=== PATIENT | male | born 1980 | race African-American/Black ===

== ENCOUNTER 2016-07-22 06:59 | Emergency (ER) | payer SELFPAY ==
[2016-07-22] MEDS ORDERED: Sodium Chloride 0.9% 1,000 ML IV ONE (07:53)
--- NOTE | 2016-07-22 08:44 | EDM.PDOC ---
ED HPI RENAL/ - General Chief Complaint: Genitourinary Problem Stated Complaint: FREQUENT URINATION Time Seen by Provider: 07/22/16 07:19 Source of Information: Reports: Patient History Limitations: Reports: No limitations - History of Present Illness INITIAL COMMENTS - FREE TEXT/NARRATIVE: HISTORY AND PHYSICAL: History of present illness: [36-year-old male with no past medical history now presents to the emergency department because he's been urinating frequently. Patient states it does not burn and he does not have any penile discharge or testicular pain. He just urinates what he feels is more frequently than what is usual for him in the past. Patient is also needing to get up during the night to urinate. No abdominal or flank pain and no penile or scrotal pain. Patient is very clear he is no penile discharge burning or dysuria the frequency only no fevers chills sweats or shaking chills Review of systems: As per history of present illness and below otherwise all systems reviewed and negative. Past medical history: As per history of present illness and as reviewed below otherwise noncontributory. Surgical history: As per history of present illness and as reviewed below otherwise noncontributory. Social history: No reported history of drug or alcohol abuse. Family history: As per history of present illness and as reviewed below otherwise noncontributory. Physical exam: HEENT: Atraumatic, normocephalic, pupils reactive, negative for conjunctival pallor or scleral icterus, mucous membranes moist, throat clear, neck supple, nontender, trachea midline. Lungs: Clear to auscultation, breath sounds equal bilaterally, chest nontender. Heart: S1S2, regular, negative for clicks, rubs, or JVD. Abdomen: Soft, nondistended, nontender. Negative for masses or hepatosplenomegaly. Negative for costovertebral tenderness. Pelvis: Stable nontender. Genitourinary: Normal external genitalia nontender perineum normal scrotum and contents. Normal penis with no discharge no skin changes Rectal: Deferred. Extremities: Atraumatic, negative for cords or calf pain. Neurovascular unremarkable. Neuro: Awake, alert, oriented. Cranial nerves II through XII unremarkable. Cerebellum unremarkable. Motor and sensory unremarkable throughout. Exam nonfocal. Diagnostics: [Patient with random glucose greater than 300 consistent with new onset type 2 diabetes.] Therapeutics: [] Impression: [] Plan: [Signs and symptoms consistent with new onset type 2 diabetes urinary frequency. Patient had not eaten yet this morning so glucose is a fasting result which at greater than 300 is clearly consistent with new onset type 2 diabetes. Will prescribe metformin the patient is aware of critical importance of compliance with a diabetic diet and close followup with a primary care DrNoe for continued care. Patient will be given the number of the [facility]. No further workup or treatment indicated and strict return precautions given] Definitive disposition and diagnosis as appropriate pending reevaluation and review of above. - Related Data Home Meds: Home Meds metFORMIN [Glucophage] 500 mg PO BIDMEALS #30 tablet 07/22/16 [Rx] Past Medical History - Past Health History Medical/Surgical History: Denies Medical/Surgical History Social & Family History - Family History Family Medical History: Unobtainable - Tobacco Use Smoking Status *Q: Never Smoker - Recreational Drug Use Recreational Drug Use: No ED ROS GENERAL - Review of Systems Review Of Systems: See Below (Per history of present illness) ED EXAM, RENAL/ - Physical Exam Exam: See Below (Per history of present illness) Course - Vital Signs Last Recorded V/S: Last Vital Signs Temp 36.9 C 07/22/16 08:46 Pulse 78 07/22/16 08:46 Resp 16 07/22/16 08:46 BP 133/75 07/22/16 08:46 Pulse Ox 98 07/22/16 08:46 - Orders/Labs/Meds Orders: Active Orders 24 hr Category Date Time Status Sodium Chloride 0.9% [Normal Saline] 1,000 ml Med 07/22/16 07:53 Active IV .Bolus Medication Orders Sodium Chloride (Normal Saline) 1,000 mls @ 999 mls/hr IV .Bolus ONE Stop: 07/22/16 08:53 Labs: Laboratory Tests 07/22/16 07/22/16 07/22/16 Range/Units 07:31 08:02 08:12 WBC 4.47 (4.0-11.0) K/uL RBC 4.71 (4.50-5.90) M/uL Hgb 15.2 (13.0-17.0) g/dL Hct 44.6 (38.0-50.0) % MCV 94.7 (80.0-98.0) fL MCH 32.3 H (27.0-32.0) pg MCHC 34.1 (31.0-37.0) g/dL RDW Std Deviation 45.8 (28.0-62.0) fl RDW Coeff of [place] 13 (11.0-15.0) % Plt Count 109 L (150-400) K/uL MPV 11.70 (7.40-12.00) fL Neut % (Auto) 34.0 L (48.0-80.0) % Lymph % (Auto) 55.9 H (16.0-40.0) % [place] % (Auto) 8.3 (0.0-15.0) % Eos % (Auto) 1.6 (0.0-7.0) % Baso % (Auto) 0.2 (0.0-1.5) % Neut # (Auto) 1.5 (1.4-5.7) K/uL Lymph # (Auto) 2.5 H (0.6-2.4) K/uL [place] # (Auto) 0.4 (0.0-0.8) K/uL Eos # (Auto) 0.1 (0.0-0.7) K/uL Baso # (Auto) 0.0 (0.0-0.1) K/uL Nucleated RBC % 0.0 /100WBC Nucleated RBCs # 0 K/uL Sodium (136-146) mmol/L Potassium (3.5-5.1) mmol/L Chloride (98-110) mmol/L Carbon Dioxide (21-31) mmol/L BUN (6.0-23.0) mg/dL Creatinine (0.6-1.5) mg/dL Est Cr Clr Drug Dosing mL/min Estimated GFR (MDRD) ml/min Glucose (60-110) mg/dL POC Glucose 389 H (60-110) mg/dL Calcium (8.8-10.8) mg/dL Total Bilirubin (0.1-1.5) mg/dL AST (5-40) IU/L ALT (8-54) IU/L Alkaline Phosphatase (40-150) Total Protein (6.0-8.0) g/dL Albumin (3.5-5.0) g/dL Globulin (2.0-3.5) g/dL Albumin/Globulin Ratio (1.3-2.8) Urine Color YELLOW Urine Appearance CLEAR Urine pH 5.5 (5.0-8.0) Ur Specific Zachary <= 1.005 (1.001-1.035) Urine Protein NEGATIVE (NEGATIVE) mg/dL Urine Glucose (UA) NEGATIVE (NEGATIVE) mg/dL Urine Ketones NEGATIVE (NEGATIVE) mg/dL Urine Occult Blood NEGATIVE (NEGATIVE) Urine Nitrite NEGATIVE (NEGATIVE) Urine Bilirubin NEGATIVE (NEGATIVE) Urine Urobilinogen 0.2 (<2.0) EU/dL Ur Leukocyte Esterase NEGATIVE (NEGATIVE) Urine RBC 0-1 (0-2/HPF) Urine WBC 0-2 (0-5/HPF) Ur Epithelial Cells FEW (NONE-FEW) Amorphous Sediment FEW (NEGATIVE) Urine Bacteria RARE (NEGATIVE) 07/22/16 Range/Units 08:12 WBC (4.0-11.0) K/uL RBC (4.50-5.90) M/uL Hgb (13.0-17.0) g/dL Hct (38.0-50.0) % MCV (80.0-98.0) fL MCH (27.0-32.0) pg MCHC (31.0-37.0) g/dL RDW Std Deviation (28.0-62.0) fl RDW Coeff of [place] (11.0-15.0) % Plt Count (150-400) K/uL MPV (7.40-12.00) fL Neut % (Auto) (48.0-80.0) % Lymph % (Auto) (16.0-40.0) % [place] % (Auto) (0.0-15.0) % Eos % (Auto) (0.0-7.0) % Baso % (Auto) (0.0-1.5) % Neut # (Auto) (1.4-5.7) K/uL Lymph # (Auto) (0.6-2.4) K/uL [place] # (Auto) (0.0-0.8) K/uL Eos # (Auto) (0.0-0.7) K/uL Baso # (Auto) (0.0-0.1) K/uL Nucleated RBC % /100WBC Nucleated RBCs # K/uL Sodium 138 (136-146) mmol/L Potassium 3.9 (3.5-5.1) mmol/L Chloride 105 (98-110) mmol/L Carbon Dioxide 22 (21-31) mmol/L BUN 14 (6.0-23.0) mg/dL Creatinine 1.2 (0.6-1.5) mg/dL Est Cr Clr Drug Dosing 76.80 mL/min Estimated GFR (MDRD) > 60.0 ml/min Glucose 102 (60-110) mg/dL POC Glucose (60-110) mg/dL Calcium 9.7 (8.8-10.8) mg/dL Total Bilirubin 0.7 (0.1-1.5) mg/dL AST 26 (5-40) IU/L ALT 19 (8-54) IU/L Alkaline Phosphatase 41 (40-150) Total Protein 8.0 (6.0-8.0) g/dL Albumin 4.6 (3.5-5.0) g/dL Globulin 3.4 (2.0-3.5) g/dL Albumin/Globulin Ratio 1.4 (1.3-2.8) Urine Color Urine Appearance Urine pH (5.0-8.0) Ur Specific [place] (1.001-1.035) Urine Protein (NEGATIVE) mg/dL Urine Glucose (UA) (NEGATIVE) mg/dL Urine Ketones (NEGATIVE) mg/dL Urine Occult Blood (NEGATIVE) Urine Nitrite (NEGATIVE) Urine Bilirubin (NEGATIVE) Urine Urobilinogen (<2.0) EU/dL Ur Leukocyte Esterase (NEGATIVE) Urine RBC (0-2/HPF) Urine WBC (0-5/HPF) Ur Epithelial Cells (NONE-FEW) Amorphous Sediment (NEGATIVE) Urine Bacteria (NEGATIVE) Meds: Medications Generic Name Dose Route Start Last Admin Trade Name Freq PRN Reason Stop Dose Admin Sodium Chloride 1,000 mls @ 999 mls/hr 07/22/16 07:53 Normal Saline IV 07/22/16 08:53 .Bolus ONE Departure - Departure Time of Disposition: 08:42 Disposition: Home, Self-Care 01 Condition: good Clinical Impression: New onset type 2 diabetes mellitus Prescriptions: metFORMIN [Glucophage] 500 mg PO BIDMEALS #30 tablet Referrals: PCP,None [Primary Care Provider] - Forms: ED Department Discharge Additional Instructions: You have new onset type 2 diabetes. Take medicine exactly as prescribed. Researching comply with a diabetic diet. Followup with your family practice clinic in one to 2 days for reevaluation and to discuss management of your diabetes. Return immediately for new severe or worsening symptoms. Followup with [facility] - My Orders Last 24 Hours: My Active Orders 07/22/16 07:53 Sodium Chloride 0.9% [Normal Saline] 1,000 ml IV .Bolus - Assessment/Plan Last 24 Hours: My Active Orders 07/22/16 07:53 Sodium Chloride 0.9% [Normal Saline] 1,000 ml IV .Bolus
[2016-07-22 08:46] LABS: CHLORIDE,CL 105 mmol/L (98-110); SODIUM,NA 138 mmol/L (136-146)
[2016-07-22 09:52] VITALS: BP 141/83
== END 2016-07-22 09:49 | disposition home or self-care (01) ==
LOC: MW.ED 06:59
DX: E11.9 Type 2 diabetes mellitus without complications (principal); R35.0 Frequency of micturition
CPT/HCPCS: 36415; 80053; 81001; 82962; 85025; 96360; 99283; J7040